=== PATIENT | male | born 1990 | race Hispanic/Latino ===

== ENCOUNTER 2021-10-14 17:18 | Emergency (ER) | payer OTHER ==
[2021-10-14] MEDS ORDERED: Acetaminophen 500 MG TAB ONE (17:56)
== END 2021-10-14 19:22 | disposition home or self-care (01) ==
LOC: CSHERS 17:18
DX: S52.125A Nondisplaced fracture of head of left radius, initial encounter for closed fracture (principal); W18.30XA Fall on same level, unspecified, initial encounter
CPT/HCPCS: 24650